=== PATIENT | female | born 1960 | race Caucasian/White ===

== ENCOUNTER 2016-05-12 18:31 | Emergency (ER) | payer BC ==
[~2016-05-12] VITALS: Ht 172.7 cm; Wt 99.8 kg
[2016-05-12] MEDS ORDERED: ONDANSETRON PF 4 MG/2 ML VIAL. IV ONE (19:45)
[2016-05-12] MEDS ORDERED: ACETAMINOPHEN 500 MG TABLET PO ONE (19:45)
[2016-05-12] MEDS ORDERED: IV NORMAL SALINE 1000ML BAG 1,000 ML IV ONE (19:45)
[2016-05-12 19:54] LABS: BASO # 0.1 x10^3/uL (0.0-0.2); BASO % 1 % (0-3); EOS % 0 % (0-3); HEMATOCRIT 38.5 % (36.0-47.0); HEMOGLOBIN 12.6 g/dL (12.0-15.5); LYMPH # 1.4 x10^3/uL (1.0-4.8); LYMPH % 8 % (24-48); MEAN CORPUSCULAR HEMOGLOBIN 30 pg (25-35); MEAN CORPUSCULAR HGB CONC 33 g/dL (31-37); MEAN CORPUSCULAR VOLUME 93 fL (79-100); MONO % 5 % (0-9); NEUT % 86 % (31-73); PLATELET COUNT 238 x10^3/uL (140-400); RED BLOOD COUNT 4.17 x10^6/uL (3.50-5.40); RED CELL DISTRIBUTION WIDTH 13.7 % (11.5-14.5); WHITE BLOOD COUNT 17.7 x10^3/uL (4.0-11.0)
[2016-05-12 20:03] LABS: BILIRUBIN,URINE NEGATIVE (NEG); GLUCOSE,URINE NEGATIVE (NEG); NITRITE,URINE NEGATIVE (NEG); PH,URINE 7.5; PROTEIN,URINE NEGATIVE (NEG-TRACE); UROBILINOGEN,URINE 0.2 mg/dL (0.2 mg/dL)
[2016-05-12 20:08] LABS: CALCIUM 9.4 mg/dL (8.5-10.1); CREATININE 0.8 mg/dL (0.6-1.0); GFR 74.2; POTASSIUM 4.2 mmol/L (3.5-5.1)
[2016-05-12 20:14] LABS: ALBUMIN 4.1 g/dL (3.4-5.0); TOTAL BILIRUBIN 0.7 mg/dL (0.2-1.0); TOTAL PROTEIN 8.2 g/dL (6.4-8.2)
[2016-05-12 20:18] LABS: BACTERIA,URINE FEW /HPF (0-FEW); SQUAMOUS EPITHELIAL CELL,UR OCC /LPF
--- NOTE | 2016-05-12 20:44 | PHYS DOC ---
Past Medical History Past Medical History: Hypertension Past Surgical History: Hysterectomy, Other Additional Past Surgical Histo: L breast bx Alcohol Use: Occasionally Drug Use: None Adult General Chief Complaint Chief Complaint: ABDOMINAL PAIN HPI HPI 55-year-old female presents tonight with a variety of complaints. She has had a fever and productive cough. She states she is coughing up yellow sputum with some blood. She also had a sore throat and body aches and upper respiratory type symptoms. She went to the [facility] today and had a negative strep and negative flu test performed. During her examination at the [facility] they noted that she had some right upper quadrant abdominal tenderness and referred her here for evaluation. Patient states that she's really felt sick since December and has had some off and on epigastric pain. She denies any melena or hematemesis.] Review of Systems Review of Systems Constitutional: Denies fever or chills [] Eyes: Denies change in visual acuity, redness, or eye pain [] HENT: Denies nasal congestion or sore throat [] Respiratory: Denies cough or shortness of breath [] Cardiovascular: No additional information not addressed in HPI [] GI: Per history of present illness [] : Denies dysuria or hematuria [] Musculoskeletal: Denies back pain or joint pain [] Integument: Denies rash or skin lesions [] Neurologic: Denies headache, focal weakness or sensory changes [] Endocrine: Denies polyuria or polydipsia [] Current Medications Current Medications Current Medications Medications (Trade) Dose Ordered Sig/Zachery Start Time Stop Time Status Last Admin Dose Admin Acetaminophen (Tylenol) 1,000 mg 1X ONCE 05/12/16 19:45 05/12/16 19:46 DC 05/12/16 19:33 1,000 MG Ondansetron HCl (Zofran) 4 mg 1X ONCE 05/12/16 19:45 05/12/16 19:46 DC 05/12/16 19:33 4 MG Sodium Chloride (Iv Sodium Chloride 0.9% 1000ml Bag) 1,000 ml @ 1,000 mls/hr 1X ONCE 05/12/16 19:45 05/12/16 20:44 DC 05/12/16 19:34 1,000 MLS/HR Allergies Allergies Allergies Coded Allergies Type Severity Reaction Last Updated Verified Sulfa (Sulfonamide Antibiotics) Adverse Reaction Intermediate nausea and vomiting 05/12/16 Yes Physical Exam Physical Exam Constitutional: Well developed, well nourished, no acute distress, she appears acutely ill but nontoxic [] HENT: Normocephalic, atraumatic, bilateral external ears normal, oropharynx moist, no oral exudates, nose normal. [] Eyes: PERRLA, EOMI, conjunctiva normal, no discharge. [] Neck: Normal range of motion, no tenderness, supple, no stridor. [] Cardiovascular:Heart rate regular rhythm, no murmur [] Lungs & Thorax: Bilateral breath sounds clear to auscultation [] Abdomen: Mild abdominal discomfort negative Tena's sign. [] Skin: Warm, dry, no erythema, no rash. [] Back: No tenderness, no CVA tenderness. [] Extremities: No tenderness, no cyanosis, no clubbing, ROM intact, no edema. [] Neurologic: Alert and oriented X 3, normal motor function, normal sensory function, no focal deficits noted. [] Psychologic: Affect normal, judgement normal, mood normal. [] Current Patient Data Vital Signs Vital Signs Date Time Temp Pulse Resp B/P Pulse Ox O2 Delivery O2 Flow Rate FiO2 05/12/16 20:29 92 19 117/58 92 Room Air 05/12/16 18:38 102.7 102.7 Lab Values Laboratory Tests Test 05/12/16 19:02 White Blood Count 17.7x10^3/uL (4.0-11.0) H Red Blood Count 4.17x10^6/uL (3.50-5.40) Hemoglobin 12.6g/dL (12.0-15.5) Hematocrit 38.5% (36.0-47.0) Mean Corpuscular Volume 93fL (79-100) Mean Corpuscular Hemoglobin 30pg (25-35) Mean Corpuscular Hemoglobin Concent 33g/dL (31-37) Red Cell Distribution Width 13.7% (11.5-14.5) Platelet Count 238x10^3/uL (140-400) Neutrophils (%) (Auto) 86% (31-73) H Lymphocytes (%) (Auto) 8% (24-48) L Monocytes (%) (Auto) 5% (0-9) Eosinophils (%) (Auto) 0% (0-3) Basophils (%) (Auto) 1% (0-3) Neutrophils # (Auto) 15.3x10^3uL (1.8-7.7) H Lymphocytes # (Auto) 1.4x10^3/uL (1.0-4.8) Monocytes # (Auto) 0.8x10^3/uL (0.0-1.1) Eosinophils # (Auto) 0.1x10^3/uL (0.0-0.7) Basophils # (Auto) 0.1x10^3/uL (0.0-0.2) Segmented Neutrophils % 78% (35-66) H Band Neutrophils % 1% (0-9) Lymphocytes % 15% (24-48) L Monocytes % 5% (0-10) Eosinophils % 1% (0-5) Platelet Estimate Adequate (ADEQUATE) Urine Color Yellow Urine Clarity Clear Urine pH 7.5 Urine Specific [place] 1.010 Urine Protein Negativemg/dL (NEG-TRACE) Urine Glucose (UA) Negativemg/dL (NEG) Urine Ketones (Stick) Negativemg/dL (NEG) Urine Blood Moderate (NEG) Urine Nitrite Negative (NEG) Urine Bilirubin Negative (NEG) Urine Urobilinogen Dipstick 0.2mg/dL (0.2 mg/dL) Urine Leukocyte Esterase Negative (NEG) Urine RBC 3-5/HPF (0-2) Urine WBC 1-4/HPF (0-4) Urine Squamous Epithelial Cells Occ/LPF Urine Bacteria Few/HPF (0-FEW) Urine Mucus Slight/LPF Sodium Level 139mmol/L (136-145) Potassium Level 4.2mmol/L (3.5-5.1) Chloride Level 101mmol/L (98-107) Carbon Dioxide Level 28mmol/L (21-32) Anion Gap 10 (6-14) Blood Urea Nitrogen 14mg/dL (7-20) Creatinine 0.8mg/dL (0.6-1.0) Estimated GFR (Cockcroft-Gault) 74.2 BUN/Creatinine Ratio 18 (6-20) Glucose Level 106mg/dL (70-99) H Lactic Acid Level 1.2mmol/L (0.4-2.0) Calcium Level 9.4mg/dL (8.5-10.1) Total Bilirubin 0.7mg/dL (0.2-1.0) Aspartate Amino Transferase (AST) 26U/L (15-37) Alanine Aminotransferase (ALT) 23U/L (14-59) Alkaline Phosphatase 73U/L (46-116) Total Protein 8.2g/dL (6.4-8.2) Albumin 4.1g/dL (3.4-5.0) Albumin/Globulin Ratio 1.0 (1.0-1.7) Lipase 144U/L (73-393) Laboratory Tests 05/12/16 19:02 Laboratory Tests 05/12/16 19:02 EKG EKG [] Radiology/Procedures Radiology/Procedures [] Impressions: PROCEDURE: ABDOMEN LTD PROCEDURE Ultrasound of the right upper quadrant of the abdomen 05/12/2016 HISTORY Right upper quadrant abdominal pain. TECHNIQUE A real-time ultrasound examination of the right upper quadrant abdomen was performed. Multiple images were obtained. FINDINGS The gallbladder is slightly contracted. A 6 millimeter polyp is seen adherent to the gallbladder wall. No gallstones are visualized. The gallbladder wall thickness is within normal limits. No pericholecystic fluid is seen. Common bile duct measures 4 millimeters in diameter which is within normal limits. The liver is normal in size measuring 15.5 centimeters in length. Increased echogenicity of the liver parenchyma is seen consistent with mild fatty infiltration. No focal abnormality of the liver is seen. The visualized portions of the pancreas and right kidney are within normal limits. IMPRESSION 1. 6 millimeter gallbladder polyp. 2. Mild fatty infiltration of the liver. Course & Med Decision Making Course & Med Decision Making Pertinent Labs and Imaging studies reviewed. (See chart for details) [ED course: Evaluation reveals 55-year-old female with a fever her lactic acid was negative chest x-ray was unremarkable gallbladder ultrasound was negative she did have an elevated white blood cell count. She was given IV fluids and Tylenol during her stay in the department which she states made her feel quite a bit better. At this point I feel the patient likely has a viral syndrome however bronchitis is certainly a possibility. We'll go ahead and start her on antibiotics. Patient is safe for discharge home] Dragon Disclaimer Dragon Disclaimer This electronic medical record was generated, in whole or in part, using a voice recognition dictation system. Departure Departure Impression: Primary Impression: Acute bronchitis Additional Impression: Abdominal pain Disposition: HOME, SELF-CARE Condition: STABLE Referrals: ALLEY MEDINA (PCP) Patient Instructions: Abdominal Pain, Fever Additional Instructions: Take your antibiotics as directed. Return to the emergency department with any new or concerning symptoms. Follow with your family doctor this week for recheck. Scripts Levofloxacin (Levaquin)500 Mg Tablet1 Tab PO DAILY bronchitis #10 TAB Prov:YANA CARRINGTON DO 05/12/16 Problem Qualifiers Primary Impression: Acute bronchitis Bronchitis organism: other organism Qualified Code: J20.8 - Acute bronchitis due to other specified organisms Additional Impression: Abdominal pain Abdominal location: right upper quadrant Qualified Code: R10.11 - Right upper quadrant pain YANA CARRINGTON DO May 12, 2016 20:44
[2016-05-12 20:58] LABS: % EOS 1 % (0-5); PLT ESTIMATE ADEQUATE (ADEQUATE)
--- NOTE | 2016-05-12 21:15 | RAD ---
PROCEDURE Ultrasound of the right upper quadrant of the abdomen 05/12/2016 HISTORY Right upper quadrant abdominal pain. TECHNIQUE A real-time ultrasound examination of the right upper quadrant abdomen was performed. Multiple images were obtained. FINDINGS The gallbladder is slightly contracted. A 6 millimeter polyp is seen adherent to the gallbladder wall. No gallstones are visualized. The gallbladder wall thickness is within normal limits. No pericholecystic fluid is seen. Common bile duct measures 4 millimeters in diameter which is within normal limits. The liver is normal in size measuring 15.5 centimeters in length. Increased echogenicity of the liver parenchyma is seen consistent with mild fatty infiltration. No focal abnormality of the liver is seen. The visualized portions of the pancreas and right kidney are within normal limits. IMPRESSION 1. 6 millimeter gallbladder polyp. 2. Mild fatty infiltration of the liver. Electronically signed by: Arpan James MD (May 12, 2016 21:13:37)
[2016-05-12] MEDS ORDERED: LEVO500T38 PO (21:58)
[2016-05-12 21:59] VITALS: BP 134/64
--- NOTE | 2016-05-13 08:38 | RAD ---
Exam: AP portable chest. History: Cough. Comparison: None. Findings: The heart and mediastinal structures are within normal limits for size. Lungs are without infiltrate. No pneumothorax or pleural effusion is appreciated. Impression: 1. No acute cardiopulmonary process.
== END 2016-05-12 22:12 | disposition home or self-care (01) ==
LOC: ER 18:31
DX: J20.8 Acute bronchitis due to other specified organisms (principal); R10.11 Right upper quadrant pain; D72.829 Elevated white blood cell count, unspecified; R10.13 Epigastric pain; I10 Essential (primary) hypertension; Z88.2 Allergy status to sulfonamides
CPT/HCPCS: 36415; 71010; 76705; 80053; 81001; 83605; 83690; 85007; 85027; 87040; 96361; 96374; 99285; J2405; J7030